=== PATIENT | male | born 1980 | race Caucasian/White ===

== ENCOUNTER → 2022-07-10 10:52 | Outpatient (CLI) | payer OTHER, SELFPAY | PROVIDERS: Referring Provider Internal Medicine; Visit Provider Internal Medicine | DX: Z23 Encounter for immunization (principal) | CPT/HCPCS: 90471; 90686 ==

== ENCOUNTER → 2023-07-22 16:08 | Outpatient (CLI) | payer OTHER, SELFPAY | PROVIDERS: Referring Provider Family Medicine; Visit Provider Family Medicine | DX: Z23 Encounter for immunization (principal) | CPT/HCPCS: 90471; 90686 ==

== ENCOUNTER 2023-11-10 05:32 | Emergency (ER) | payer OTHER, SELFPAY ==
[2023-11-10 05:40] VITALS: BP 149/99; PULSE 115; RESP 16; TEMP 36; O2SAT 96; BMI 37.5
--- NOTE | 2023-11-10 05:59 | ED.MALEGU ---
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 He reports that he was moving a patient he had the proper positioning he pulled and instantly felt pain from his abdomen shave down to his testicle. He is okay walking and ambulating he does not want anything for pain. Was instructed to come down and get checked out. No direct trauma to the testicle. Related Data Allergies Allergy/AdvReac Type Severity Reaction Status Date / Time simvastatin Allergy Verified 11/10/23 05:45 Patient History Social History Smoking Status: Never smoker Smoking Status: Never smoker alcohol intake frequency: a few times a month Substance Use Type: does not use Exam Initial Vital Signs Initial Vital Signs: Vital Signs Temperature 96.8 F L 11/10/23 05:40 Pulse Rate 115 H 11/10/23 05:40 Respiratory Rate 16 11/10/23 05:40 Blood Pressure 149/99 H 11/10/23 05:40 Pulse Oximetry 96 11/10/23 05:40 Oxygen Delivery Method Room Air 11/10/23 05:40 GENERAL: Well-appearing, well-nourished and in no acute distress. CARDIOVASCULAR: peripheral pulses in tact, cap refill <2 sec RESPIRATORY: No respiratory distress, speaks in full sentences without difficulty ABDOMEN: Soft, nontender, no guarding or rebound : Nurse Gege in room for exam, no hernia appreciated very tender at top of testicle no significant swelling no erythema EXTREMITIES: Normal range of motion, no clubbing or edema. Neurovascularly intact NEUROLOGICAL: Cranial nerves II through XII grossly intact. Normal gait and speech. SKIN: Warm, dry, no petechiae, no rashes or lesions. Course Vital Signs Vital signs: Vital Signs - 8 hr 11/10/23 05:40 Temperature 96.8 F L Pulse Rate 115 H Respiratory Rate 16 Blood Pressure 149/99 H Pulse Oximetry 96 Oxygen Delivery Method Room Air MDM - Male Genitourinary MDM Narrative Medical decision making narrative: Patient 43-year-old male presents today with right testicular pain after moving a patient. No specific testicular trauma but does feel pain in right testy started in his abdomen radiated down. Did not actually appreciate hernia at this time though maybe the start of 1. Likely groin strain at this time. No concern for torsion Discharge Plan Departure Patient Disposition: Home Clinical Impression: Strain of right groin Instructions: Groin Strain Activity Restrictions/Additional Instructions: *You have been diagnosed with right groin strain *What to do: At this time I do not feel a hernia however maybe the start of 1. Please continue to monitor. Wear supportive underwear. If you do noticed some swelling be sure that you can push it back in. *Continue to take medications as directed Tylenol Motrin as needed for pain *Follow up with your primary care provider in 2-3 days or call [phone] *Return to ER if you should have increasing pain swelling non reducible swelling or any new, worsening or concerning symptoms Stand Alone Forms: Patient Portal/API
[2023-11-10 06:09] VITALS: BP 158/95; PULSE 99; O2SAT 98
== END 2023-11-10 06:15 | disposition home or self-care (01) ==
PROVIDERS: Emergency Provider Emergency Medicine
DX: S39.011A Strain of muscle, fascia and tendon of abdomen, initial encounter (principal); N50.811 Right testicular pain
CPT/HCPCS: 99281

== ENCOUNTER → 2024-08-11 10:13 | Outpatient (CLI) | payer OTHER, SELFPAY | PROVIDERS: Referring Provider Internal Medicine; Visit Provider Internal Medicine | DX: Z23 Encounter for immunization (principal) | CPT/HCPCS: 90471; 90656 ==